=== PATIENT | male | born 1970 | race Caucasian/White ===

== ENCOUNTER 2017-09-30 07:26 | Emergency (ER) | payer BC ==
[2017-09-30] MEDS ORDERED: KETOROLAC TROMETHAMINE 60 MG/2 ML VIAL IM ONE (07:41)
[2017-09-30 08:09] LABS: BASOPHILS % 0.4 (0.0-1.5); EOSINOPHILS % 1.7 % (0.0-6.8); MEAN CORPUSCULAR VOLUME 96.7 fl (80.0-100.0); MONOCYTES % 5.8 % (0.0-11.0); NEUTROPHILS # 6.1 # k/uL (1.4-7.7)
[2017-09-30 08:10] LABS: eGFR (African) > 60; eGFR (Non-African) > 60
--- NOTE | 2017-09-30 08:29 | ED Physician Documentation ---
General Adult - HISTORIAN Historian: patient - HPI Stated Complaint: gout Chief Complaint: General Adult Onset: days ago Timing: still present Severity: moderate Further Comments: yes (Pt is a 47 yo male with redness & tenderness in the large toe and 2nd toe of his R foot. Pt believes that he has gout, and he has had episodes like this in the past, though he has never been diagnosed.) - ROS CONST: no problems EYES/ENT: none CVS/RESP: none GI/: none MS/SKIN/LYMPH: other (painful R foot) - PAST HX Past History: hypertension Other History: none Allergies/Adverse Reactions: Allergies Allergy/AdvReac Type Severity Reaction Status Date / Time No Known Allergies Allergy Verified 09/30/17 07:41 Home Medications: Ambulatory Orders Medication Instructions Recorded NK [NK] 09/30/17 - SOCIAL HX Smoking History: cigarettes Alcohol Use: heavy - FAMILY HX Family History: No - VITAL SIGNS Vital Signs: Vital Signs Temp Pulse Resp BP Pulse Ox 98.0 F 114 H 18 203/151 95 09/30/17 07:34 09/30/17 07:34 09/30/17 07:34 09/30/17 07:34 09/30/17 07:34 - REVIEWED ASSESSMENTS Nursing Assessment Reviewed: Yes Vitals Reviewed: Yes Progress - Progress Progress: Rx Colchicine 0.6 mg. Take 2 tablets by mouth; then 1 tablet by mouth after 1 hour. Rx Indomethacin 50 mg. Take one by mouth every 8 hrs with food. (Use in place of ibuprofen or other NSAIDS.) Rx Prednisone 50 mg. Take one daily for 5 days. Rx Allopurinol 100 mg. Take one daily for 1 week, then take two daily. Follow up with primary provider. May discontinue when Uric Acid Level is < 6.0. Do not start this medication until you are symptom free. ED Results Lab/Radiology - Lab Results Lab Results: Lab Results 09/30/17 09/30/17 09/30/17 07:50 07:50 07:50 WBC 8.40 K/ul K/ul (4.00-12.00) RBC 4.91 M/ul M/ul (3.90-5.20) Hgb 15.7 g/dL g/dL (12.0-18.0) Hct 47.4 % % (37.0-53.0) MCV 96.7 fl fl (80.0-100.0) MCH 32.0 pg pg (28.0-34.0) MCHC 33.1 g/dL g/dL (30.0-36.0) RDW 12.6 % % (11.3-14.3) Plt Count 183 K/mm3 K/mm3 (130-400) Neut % (Auto) 73.3 % % (39.0-79.0) Lymph % (Auto) 17.4 % % (16.0-50.0) Woodruff % (Auto) 5.8 % % (0.0-11.0) Eos % (Auto) 1.7 % % (0.0-6.8) Baso % (Auto) 0.4 (0.0-1.5) Neut # (Auto) 6.1 # k/uL # k/uL (1.4-7.7) Lymph # (Auto) 1.5 # k/uL # k/uL (0.6-4.0) Woodruff # (Auto) 0.5 # k/uL # k/uL (0.0-0.9) Eos # (Auto) 0.1 # k/uL # k/uL (0.0-0.6) Baso # (Auto) 0.0 # k/uL # k/uL (0.0-0.5) Reactive Lymphs % 1.4 % % (0.0-5.0) Reactive Lymphs # 0.1 # k/uL # k/uL (0.0-0.8) Sodium 141 mmol/L mmol/L (136-145) Potassium 4.1 mmol/L mmol/L (3.5-5.1) Chloride 104 mmol/L mmol/L (98-107) Carbon Dioxide 24 mmol/L mmol/L (22-30) BUN 14 mg/dL mg/dL (9-20) Creatinine 0.80 mg/dL mg/dL (0.66-1.25) Estimated Creat Clear 155 Est GFR ( Amer) > 60 (60 - ) Est GFR (Non-Af Amer) > 60 (60 - ) Glucose 124 mg/dL H mg/dL (74-106) Uric Acid 8.6 mg/dL H mg/dL (3.5-8.5) Calcium 9.2 mg/dL mg/dL (8.4-10.2) Total Bilirubin < 0.1 mg/dL L mg/dL (0.2-1.3) AST 25 U/L U/L (15-46) ALT 35 U/L U/L (13-69) Alkaline Phosphatase 77 U/L U/L (38-126) Total Protein 8.1 g/dL g/dL (6.3-8.2) Albumin 4.8 g/dL g/dL (3.5-5.0) - Orders Orders: ED Orders Category Date Time Status CBC/PLATELET/DIFF Routine Lab 09/30/17 07:50 Completed CMP Routine Lab 09/30/17 07:50 Completed URIC ACID Stat Lab 09/30/17 07:50 Completed Ketorolac Tromethamine [Toradol] Med 09/30/17 07:41 Discontinued 60 mg IM NOW ONE General Adult Physical Exam - PHYSICAL EXAM GENERAL APPEARANCE: moderate distress EENT: pharynx normal NECK: normal inspection, supple RESPIRATORY: no resp distress, chest non-tender, breath sounds normal CVS: reg rate & rhythm, heart sounds normal ABDOMEN: soft, no organomegaly, normal bowel sounds BACK: normal inspection, no CVA tenderness SKIN: other (erythema, tenderness 1st & second digits of R foot, c/w gout) NEURO: oriented X3, motor nml, sensation nml Discharge Clincal Impression: Gout Qualifiers: Gout site: foot Gout etiology: unspecified cause Chronicity: acute Laterality: right Qualified Code(s): M10.9 - Gout, unspecified Referrals: Primary Doctor,No [Primary Care Provider] - 2 Days Condition: Good Disposition: 01 HOME, SELF-CARE Decision to Admit: NO Decision Time: 08:29
[2017-09-30 08:49] VITALS: BP 194/127
== END 2017-09-30 08:46 | disposition home or self-care (01) ==
LOC: ED 07:26
DX: M10.9 Gout, unspecified (principal)
CPT/HCPCS: 80053; 84550; 85025; J1885; 96372